=== PATIENT | male | born 1990 | race Caucasian/White ===

== ENCOUNTER → 2020-04-07 16:18 | Outpatient (CLI) | payer SELFPAY ==
[2020-04-07 11:43] VITALS: BMI 31.8
[2020-04-07 16:37] LABS: Color, Urine Yellow (Yellow); Glucose, Dipstick Normal (Normal); Ketone-Dipstick 5 mg/dl (Negative); Leukocyte Esterase-Dipstick Negative /ul (Negative); Nitrite-Dipstick Negative (Negative); Occult Blood-Urine 10 /ul (Negative); Protein-Dipstick Negative (Negative); Specific Gravity, Urine 1.025 (1.002-1.030); Urine Bilirubin Dipstick Negative (Negative); Urine Clarity Sl. Cloudy (Clear); Urine Urobilinogen Normal (Normal)
== END ==
PROVIDERS: Referring Provider Physician Assistant Surgical; Visit Provider Physician Assistant Surgical
DX: N39.0 Urinary tract infection, site not specified (principal)
CPT/HCPCS: 81002; 87086; 87088

== ENCOUNTER 2020-04-21 11:17 | Emergency (ER) | payer OTHER, SELFPAY ==
[2020-04-07 11:43] VITALS: BMI 31.8
[2020-04-21 11:18] VITALS: BP 149/83; PULSE 78; RESP 17; TEMP 36.9; O2SAT 97; BMI 31.4
--- NOTE | 2020-04-21 11:34 | CT_ITS ---
STUDY: CT ABDOMEN AND PELVIS WITH CONTRAST REASON FOR EXAM: Male, 29 years old. ABD PAIN X 10 WKS RADIATION DOSAGE (If Supplied By Facility): CTDIvol = ( 14.87 ) mGy, DLP = ( 1268.07 ) mGycm TECHNIQUE: Transaxial images were obtained from the dome of the diaphragm to the symphysis pubis without oral contrast. IV 100mL Isovue-300 was administered. Sagittal and coronal images were reconstructed. Individualized dose optimization techniques were used for this CT. COMPARISON: None. FINDINGS: The visualized lung bases are unremarkable. There is decreased attenuation of the liver consistent with steatosis. Normal gallbladder and extrahepatic biliary system. Normal spleen. Normal pancreas. Normal bilateral adrenal glands. Unremarkable right kidney. Unremarkable left kidney. Normal visualized stomach. Normal small intestine. Normal colon. The appendix is visualized and appears normal. Normal abdominal aorta. Normal urinary bladder. Normal abdominal wall. Normal osseous structures. CT/Abdomen/Pelvis W IV Cont ONLY IMPRESSION: No bowel obstruction, colitis or diverticulitis. Electronically Signed: Saskia Lott MD at 13:33 EST Tel , Service support ,
--- NOTE | 2020-04-21 11:37 | ED.DCSUM_ITS ---
- ER Visit Summary Date of Service: 04/21/20 Chief Complaint: Abdominal pain History of Present Illness: The patient is a 29 M no seen past medical or surgical history. They states for last 6 to 10 weeks he has had diffuse abdominal pain. Denies nausea vomiting diarrhea or constipation. States he has had some mild dysuria. Complains of some mild left inguinal pain. Denies any hernia. Has had no abdominal trauma. No fever. No weight change. No melena. He has never had any abdominal surgeries. Saw his primary care physician yesterday. Physical Examination: Young male no acute distress vital signs stable afebrile. He does not look septic or toxic. HEENT exam unremarkable. Neck nontender no lymphadenopathy. Lungs clear to auscultation bilaterally. Heart regular rhythm no murmur. Abdomen soft. Nondistended. Normal bowel sounds no peritoneal signs. No right upper or right lower quadrant tenderness. No Perez sign or McBurney's point tenderness. No hernia or mass. External exam unremarkable. Circumcised male. No testicular swelling, edema, redness. No torsion or mass. No specific epididymal tenderness. No obvious hernia. Patient is moving all 4 extremities. Neurovascular intact. No edema. Neurologically is awake and alert with no focal motor deficits. Test Results: White count of 6. Hemoglobin 15. Chemistries normal normal creatinine gap. Liver enzymes normal. Lipase normal at 84. UA normal. CAT scan abdomen pelvis with IV contrast only shows no acute abnormality. Read by the radiologist and reviewed by me. Exam patient is doing well at 1330 6 PM. Abdomen is benign. We went over all his test results. To be discharged home. Emergency Department Course and Treatment: Patient wants a CAT scan evaluation. His abdomen is benign. He will undergo an abdominal pain work-up including urinalysis and imaging. Treatment Plan: Follow-up with your doctor if not improving. Tylenol and/or Motrin for pain. Return if feeling worse. Disposition: discharge Impression: Acute abdominal pain of uncertain etiology This note was generated with [employer] dictation software. It may contain incorrect words, spelling, and punctuation that were not noted in review of the chart prior to signing ED Disposition - Plan for ED Patient: Referrals: Juan A Mondragon MD [Primary Care Provider] -
[2020-04-21 11:57] LABS: Absolute Neutrophil Count 4.5 X10^3/uL (2.0-7.7); Basophil# 0.02 X10^3/uL; Basophil% 0.3 % (0-1); Eosinophil# 0.05 X10^3/uL; Eosinophils% 0.7 % (0-5); Hematocrit 44.3 % (40-54); Hemoglobin 15.2 g/dL (13.0-16.5); Lymphocyte % 23.9 % (19-41); Mean Corp Hgb Conc 34.3 g/dL (32-36); Mean Corpuscular Volume 90.4 fL (80-94); Mean Platelet Vol. 9.9 fl (6.2-12.0); Monocyte# 0.54 X10^3/uL; Monocyte% 8.1 % (0-10); NRBC Flagged by Analyzer 0 % (0-5); Neutrophil # 4.46 X10^3/uL (2.7-7.7); Neutrophil % 66.7 % (47-70); Platelet Count 264 K/mm3 (150-450); RBC Distribution Width CV 11.9 % (11.6-14.6); RBC Distribution Width SD 39.4 fl (35.1-43.9); White Blood Count 6.7 K/mm3 (4.4-11.0)
[2020-04-21 12:01] LABS: Bacteria 0 SEEN /hpf (None Seen); Red Blood Cells-Urine 0 SEEN /hpf (0-5); White Blood Cells 0 SEEN /hpf (0-5)
[2020-04-21 12:06] LABS: Color, Urine Yellow (Yellow); Glucose, Dipstick Normal (Normal); Ketone-Dipstick 15 mg/dl (Negative); Leukocyte Esterase-Dipstick Negative /ul (Negative); Nitrite-Dipstick Negative (Negative); Occult Blood-Urine 10 /ul (Negative); Protein-Dipstick Negative (Negative); Specific Gravity, Urine 1.025 (1.002-1.030); Urine Bilirubin Dipstick Negative (Negative); Urine Clarity Clear (Clear); Urine Urobilinogen Normal (Normal)
[2020-04-21 12:11] LABS: ALB/GLOB Ratio 1.2 RATIO (0.9-2.4); AST(SGOT) 19 U/L (15-37); Alanine Aminotransfer ALT/SGPT 49 U/L (16-61); Albumin, Serum 4.5 g/dL (3.2-5.0); Alkaline Phosphatase 89 U/L (45-117); Anion Gap 6 (5-15); BUN 16 mg/dL (7-18); BUN/Creat Ratio 15.4 RATIO (10-20); Calcium,Total 9.6 mg/dL (8.5-10.1); Chloride 106 mmol/L (98-107); Creatinine, Serum 1.04 mg/dL (0.70-1.30); EST Glomerular Filtration Rate 88 mL/min (>60); Est Glom Filt Rate - Afr Amer 107 mL/min (>60); Estimated Creatinine Clearance 109.61 ml/min; Globulin 3.6 g/dL (2.2-4.2); Glucose 93 mg/dL (74-106); Lipase 84 U/L (73-393); Protein, Total 8.1 g/dL (6.4-8.2); Sodium Level 139 mmol/L (136-145)
[2020-04-21 12:31] LABS: Mucous, Urine 2+ /hpf (<or=2+); Squamous Epithelial Cells - UA 0-5 SEEN /hpf (0-5)
[2020-04-21 13:36] VITALS: BP 137/81; PULSE 87; RESP 16; O2SAT 97
--- NOTE | 2020-04-21 13:39 | ED.DEP ---
ED Disposition - Plan for ED Patient: Disposition: Home or Assisted Living Instructions: ED Unknown Causes of Abdominal ... Referrals: Juan A Mondragon MD [Primary Care Provider] - 3-5 Days if not improving Additional Instructions: All your test today were normal. Your CAT scan did not show any reason for your pain. Follow-up with your primary care physician in 3 to 5 days if not improving. Tylenol and/or Motrin for pain.
== END 2020-04-21 13:45 | disposition home or self-care (01) ==
PROVIDERS: Emergency Provider Emergency Medicine; PCP Family Medicine
DX: R10.84 Generalized abdominal pain (principal); R30.0 Dysuria
CPT/HCPCS: 74177; 80053; 81001; 83690; 85025; 99283; Q9967; A4216

== ENCOUNTER → 2021-11-15 | Outpatient (CLI) | payer SELFPAY ==
--- NOTE | 2021-11-15 | VAS_PTH ---
PATIENT: HANY LESLIE LOC: [facility]#:[id number] AGE/SX: 31/M ROOM: RE11/15/[address]: Dr. Mina Henderson MD : 1990 BED: DIS: 11/15/2021 SPEC #: [id number] RECD: 11/15/21 15:34 STATUS: THELMA REPete #: [id number] DOLORES: 11/15/21 00:[address]: Mina Henderson DEPT: SURGICAL PATHOLOGY RECD BY: Giovanni Low ENTERED: 11/18/21 12:32 SP TYPE: VAS OTHR DR: Dr. Felicia Sawyer MD Tissues: A - Vas deferens, NOS B - Vas deferens, NOS Procedures: Surgery Specimen Level II HEADER OPERATION: Bilateral partial vasectomy PRE-OP DIAGNOSIS: Sterilization TISSUE SUBMITTED: A ? Right vas deferens, B ? Left vas deferens MICROSCOPIC DIAGNOSIS A. Right vas deferens, partial vasectomy: Completely transected segment of vas deferens, no pathologic diagnosis. B. Left vas deferens, partial vasectomy: Completely transected segment of vas deferens, no pathologic diagnosis. MARGARITA:gutierrez 11/19/2021 MICROSCOPIC DESCRIPTION Slides are reviewed. GROSS DESCRIPTION A - Received is one container designated right vas deferens. The specimen consists of a tubular segment of garcía soft tissue measuring 1 cm in length and 0.3 cm in diameter. The specimen is sectioned and submitted entirely in one cassette. B - Received is one container designated left vas deferens. The specimen consists of a tubular segment of garcía soft tissue measuring 1 cm in length and 0.1 cm in diameter. The specimen is sectioned and submitted entirely in one cassette. / MARGARITA:gutierrez 11/18/2021 TC:4 [facility]: [id number] x2
== END | disposition home or self-care (01) ==
PROVIDERS: PCP Internal Medicine; Visit Provider Surgery
DX: Z30.2 Encounter for sterilization (principal)
CPT/HCPCS: 88302

== ENCOUNTER → 2021-12-23 | Outpatient (CLI) | payer SELFPAY ==
[2021-12-23 12:45] LABS: Semen Analysis Post Vas PRELIMINARY PRESENT
[2021-12-24 12:59] LABS: Pathologist Review Reviewed
== END | disposition home or self-care (01) ==
LOC: LABSPEC 11:06
PROVIDERS: PCP Internal Medicine; Referring Provider Surgery; Visit Provider Surgery
DX: Z30.2 Encounter for sterilization (principal)
CPT/HCPCS: 89321

== ENCOUNTER → 2022-02-04 | Outpatient (CLI) | payer SELFPAY ==
[2022-02-04 11:21] LABS: Semen Analysis Post Vas ABSENT
[2022-02-04 13:39] LABS: Pathologist Review Reviewed
== END | disposition home or self-care (01) ==
LOC: LABSPEC 10:28
PROVIDERS: PCP Internal Medicine; Referring Provider Surgery; Visit Provider Surgery
DX: Z30.2 Encounter for sterilization (principal)
CPT/HCPCS: 89321